=== PATIENT | male | born 1985 | race Caucasian/White ===

== ENCOUNTER 2016-11-26 18:17 | Emergency (ER) | payer SELFPAY ==
[2016-11-26 19:06] VITALS: BP 122/67
[2016-11-26] MEDS ORDERED: TRIAMCINOLONE ACETONIDE 15 APPL TUBE TP ONE (19:35)
--- NOTE | 2016-11-26 19:48 | ERNOTE ---
Integumentary HPI - Narrative Date of Service: 11/26/16 - General Presenting Symptoms: rash Time Seen by Provider: 11/26/16 19:17 Source: patient Exam Limitations: no limitations - Immun/Allergies/Home Medications Immunizations: IMMUNIZATION HX Immunizations Up to Date Yes History of Influenza Vaccine No Hx Pneumococcal Vaccination No Allergies/Adverse Reactions: Allergies Allergy/AdvReac Type Severity Reaction Status Date / Time No Known Allergies Allergy Unverified 11/26/16 19:06 Home Medications: HOME MEDICATIONS NK [No Home Medication] 11/26/16 [Last Taken Unknown] - History of Present Illness Narrative: Louise elevated slightly pruritic rash in a ring shape, fairly large, on the left lateral neck and left jaw. Had a similar rash on his right arm when he was incarcerated. Location: Reports: neck, facial Quality: Reports: itching Severity: mild Exposure: Reports: no cause identified Modifying Factors - (Improves): Reports: nothing Modifying Factors - (Worsens): Reports: nothing Associated Symptoms: Reports: denies symptoms Prior Treatment: Denies: recently seen, currently on antibiotics Review of Systems - Review of Systems Constitutional: Present: no symptoms reported EYE: Present: no symptoms reported ENT: Present: no symptoms reported Respiratory: Present: no symptoms reported Cardiology: Present: no symptoms reported Gastrointestinal/Abdominal: Present: no symptoms reported Genitourinary: Present: no symptoms reported Musculoskeletal: Present: no symptoms reported Skin: Present: See HPI Neurological: Present: no symptoms reported Endocrine: Present: no symptoms reported Hematologic/Lymphatic: Present: no symptoms reported Psych: Present: no symptoms reported All Other Systems: All systems neg except as marked - Patient's Past Medical History Patient History - Medical: No pertinent hx Patient History - Cardiac/Respiratory: No pertinent hx Patient History - Cancer: No Hx of Cancer Patient History - Surgical Procedures: No surgical history Patient History - Other: None - Social History Living Situations: other Abuse History: No History of abuse Psych History: No pertinent hx Smoking Status: Current every day smoker Have you smoked in the past 12 months: Yes Do you dip or chew tobacco: No Alcohol Use: occasionally Drug Use: none - Immunizations Immunizations Up to Date: Yes Hx Pneumococcal Vaccination: No History of Influenza Vaccine: No Physical Exam - Physical Exam General Appearance: Present: wd/wn, alert, no apparent distress Eye Exam: Normal inspection: bilateral, PERRL: bilateral, EOMI: bilateral Ears, Nose, Throat: Present: normal ENT inspection, hearing grossly normal Neck: Present: normal inspection, nontender Respiratory: Present: no respiratory distress Cardiovascular/Chest: Present: regular rate, rhythm Extremity Exam: Present: normal inspection, no edema Neurological Exam: Present: alert, oriented, normal mood/affect Skin Exam: Present: normal color, warm/dry, other - rather large circular pink elevated rash with central area clear on his left lateral neck and up onto his jaw. ED Progress - Vital Signs Patient's Vital Signs:: I have reviewed the patient's vital signs. Vital Signs: Vital Signs 11/26/16 18:58 Temperature 35.7 C L Pulse Rate 78 Respiratory 16 Rate Blood Pressure 122/67 O2 Sat by Pulse 97 Oximetry - Progress/Reassessment Chief Complaint: Rash Departure Clinical Impression: Granuloma annulare - Departure Condition: Good Instructions: Rash, [id number] Additional Instructions: I think this rash may be called granuloma annulare. Please followup with a health provider of your choice within the next 2-3 weeks. Apply the cream sparingly twice daily.
== END 2016-11-26 19:53 | disposition home or self-care (01) ==
LOC: ER 18:17
DX: L92.9 Granulomatous disorder of the skin and subcutaneous tissue, unspecified (principal); Z72.0 Tobacco use